=== PATIENT | female | born 1985 | race Caucasian/White ===

== ENCOUNTER 2021-02-27 09:14 | Emergency (ER) | payer OTHER, SELFPAY ==
[2021-02-27 09:20] VITALS: BP 110/63; PULSE 73; RESP 18; TEMP 37; O2SAT 96; BMI 20.7
--- NOTE | 2021-02-27 09:32 | ED.GENADULT ---
HPI - General Adult General Chief complaint: Abdominal Pain Stated complaint: groin pain/trouble urinating Time Seen by Provider: 02/27/21 09:27 Source: patient Mode of arrival: Ambulatory Limitations: no limitations History of Present Illness HPI narrative: Patient is a 35-year-old female here for evaluation of several weeks/months of groin discomfort and inability to urinate. She has been seen at least 2 times at an outside facility. She states she had an ultrasound over her abdomen and also with CT scan. She was told that everything was unremarkable. She states that she has also been ?ruled out for any infection ?during these visits. She does have a follow-up with Urology scheduled in approximately 1 week. She comes the emergency department today for lower abdominal discomfort. Problems with urinating. Incomplete voiding and pain. She has had her tubes tied. Related Data Previous Rx's Medication Instructions Recorded cephalexin 500 mg PO BID 7 Days #14 cap 02/27/21 Allergies Allergy/AdvReac Type Severity Reaction Status Date / Time No Known Drug Allergies Allergy Verified 02/27/21 09:34 Review of Systems Constitutional Constitutional: Denies fever(s) Cardiovascular Cardiovascular: Reports system reviewed and no additional complaints, except as documented Respiratory Respiratory: Reports system reviewed and no additional complaints, except as documented Gastrointestinal Gastrointestinal: Reports system reviewed and no additional complaints, except as documented and Denies change in bowel habits Genitourinary Genitourinary: Reports oliguria, Reports dysuria, Reports urinary hesitancy, Denies urinary incontinence and Reports urinary urgency Genitourinary: Reports dysuria, Denies urinary incontinence, Reports urinary hesitancy and Reports urinary urgency Musculoskeletal Musculoskeletal: Denies back pain Integumentary/Breasts Skin/Breast: Reports system reviewed and no additional complaints, except as documented Neurologic Neurologic: Reports system reviewed and no additional complaints, except as documented Hematologic/Lymphatic On Anticoagulants: No Allergic/Immunologic Allergic/Immunologic: Reports system reviewed and no additional complaints, except as documented Patient History Surgical History Tubal ligation status Social History lives independently: Yes Smoking Status: Never smoker Exam Initial Vital Signs Initial Vital Signs: Vital Signs Temperature 98.6 F 02/27/21 09:20 Pulse Rate 73 06/02/21 09:20 Respiratory Rate 18 02/27/21 09:20 Blood Pressure 110/63 02/27/21 09:20 Pulse Oximetry 96 02/27/21 09:20 Const General: cooperative and comfortable Limitations: mental status not altered HENMT Head: normal to inspection and normocephalic Resp Effort & Inspection: normal respiratory effort Cardio Rate: regular rate GI Palpation: soft and tender (Suprapubic) Skin Lesions: no lesions Rashes: no rashes Neuro General: patient alert and patient awake Cognition: normal cognition Speech: speech normal Extrem General: normal to inspection and capillary refill normal Psych Appearance: grossly normal and well kempt Course Orders Ordered: ED Orders 02/27/21 09:54 Urinalysis and Microscopic Stat Urine Culture Stat 02/27/21 10:31 US pelvic complete Stat Vital Signs Vital signs: Vital Signs - 8 hr 02/27/21 09:20 02/27/21 11:30 02/27/21 12:05 Temperature 98.6 F Pulse Rate 73 75 72 Respiratory Rate 18 18 16 Blood Pressure 110/63 110/74 113/57 L Pulse Oximetry 96 98 99 Medical Decision Making Medical Records Medical records reviewed: Yes I reviewed the patient's medical records. Lab Data Lab results reviewed: Yes I reviewed the patient's lab results. Labs: Lab Results 02/27/21 Range/Units 09:54 Urine Color Yellow Urine Appearance Clear Urine pH 6.5 (4.5-8.0) Ur Specific [place] 1.025 (1.000-1.035) Urine Protein Negative (Negative) Urine Glucose (UA) Trace H (Negative) g/dL Urine Ketones Negative (NEGATIVE) Urine Occult Blood Trace-intact (Negative) Urine Nitrate Positive H (Negative) Urine Bilirubin Negative (NEGATIVE) Urine Urobilinogen 0.2 (0.2) E.U./dL Ur Leukocyte Esterase Trace H (NEGATIVE) Urine RBC None seen (0-5/HPF) Urine WBC 5-10/hpf H (0-5/HPF) Ur Squamous Epith Cells 1-5 /hpf (0-5/HPF) Urine Bacteria Many (>30) H (None) Ur Culture Indicated? Specimen cultured Point of Care Testing Test Results Negative Urine Dip Bedside Urine Glucose Negative Bedside Urine Bilirubin - Negative Bedside Urine Ketone - Negative Urine Specific [place] 1.025 Bedside Urine Occult Blood +/- Bedside Urine pH 6 Bedside Urine Protein - Negative Bedside Urine Urobilinogen - Negative Bedside Urine Nitrite - Negative Bedside Urine Leukocytes +/- 15 Esterase Point of care testing: Point of Care Testing Test Results Negative Urine Dip Bedside Urine Glucose Negative Bedside Urine Bilirubin - Negative Bedside Urine Ketone - Negative Urine Specific [place] 1.025 Bedside Urine Occult Blood +/- Bedside Urine pH 6 Bedside Urine Protein - Negative Bedside Urine Urobilinogen - Negative Bedside Urine Nitrite - Negative Bedside Urine Leukocytes +/- 15 Esterase Imaging Data US - [employer]ODUCTION PROFESSIONAL: Radiologist's Impression: [address] [id number] ReportSigned Patient: Bere Shepherd LMR#: [id number]: [id number]:[id number]/Sex: 35 / FDate of Service: 02/27/21Loc: EDAccession Number: [id number] Procedure: US pelvic complete Ordering Provider: Garrett Houston D.O. PROCEDURE: US PELVIC COMPLETE INDICATIONS: BILATERAL PELVIC PAIN TECHNIQUE: Real-time scanning was performed of the pelvic organs, with image documentation. Additional endovaginal scanning was necessary due to incomplete visualization of the adnexal and endometrial structures by transabdominal scanning. COMPARISON: None. FINDINGS: Uterus: Uterus is normal in size at 6.8 x 5.4 x 6.6 cm. The endometrium measures 13 mm in combined thickness. Ovaries: Right ovary measures 4.3 x 1.5 x 2.9 cm. Left ovary measures 2.4 x 3.5 x 2.3 cm. There is a complex focus of echogenicity within the left ovary measuring 2.2 x 1.9 x 2.4 cm. Other: No pathologic free abdominal or pelvic fluid. IMPRESSION: Appearance of hemorrhagic cyst within the left ovary. Dictated by: Kelsie Araujo M.D. on 02/27/2021 at 11:43 Approved by: Kelsie Araujo M.D. on 02/27/2021 at 11:44 MDM Narrative Medical decision making narrative: Patient does have a benign exam. Ultrasound does show a left-sided ovarian cyst which I am not convinced as the cause of her pelvic discomfort. She does have a urinary tract infection today. Given her symptoms that she is having and the positive nitrate. I did discuss this with her. Was able to review the ER notes from the outside visit. At that point she did not have a urinary tract infection. Will send home on Keflex. She has an appointment with Urology already scheduled and I informed her that she needs to talk with her primary doctor about potentially getting in to see work checker as well. I feel we can hold on a CT scan. She had a CT at her prior ED visit was able to review those results and it was unremarkable. Patient was given return precautions. She expressed understanding and agreement. Discharge Plan Departure Patient Disposition: Home Clinical Impression: Pelvic pain, Ovarian cyst, Urinary tract infection Instructions: DI for Urinary Tract Infection (UTI) Activity Restrictions/Additional Instructions: Recommend that you start the antibiotics as directed. Continue to keep all of your medical appointments with the urologist. I would also recommend you talk with your primary doctor about a referral to see work checker. Return to the emergency department for any new or worsening symptoms Prescriptions: New cephalexin 500 mg capsule 500 mg PO BID 7 Days Qty: 14 RF: 0 Referrals: Rubin Levine MD [Primary Care Provider] -
[2021-02-27 09:56] LABS: RBC Urine None Seen (0-5/HPF)
[2021-02-27 09:57] LABS: Appearance Urine UA CLEAR; Bilirubin Urine UA NEGATIVE (NEGATIVE); Color Urine UA YELLOW; Glucose Urine UA TRACE g/dL (Negative); Ketones Urine UA NEGATIVE (NEGATIVE); Leukocyte Esterase Urine UA TRACE (NEGATIVE); Nitrite Urine UA POSITIVE (Negative); Occult Blood Urine UA TRACE-INTACT (Negative); Protein Urine UA NEGATIVE (Negative); Specific Gravity Urine UA 1.025 (1.000-1.035); Urobilinogen Urine UA 0.2 E.U./dL (0.2)
[2021-02-27 09:58] LABS: pH Urine UA 6.5 (4.5-8.0)
[2021-02-27 10:02] LABS: Bacteria Urine Many (>30); Culture Indicated Urine Specimen Cultured; Squamous Epithelial Cell Urine 1-5 /HPF (0-5/HPF); WBC Urine 5-10/HPF (0-5/HPF)
--- NOTE | 2021-02-27 10:31 | DI.US.S_ITS ---
PROCEDURE: US PELVIC COMPLETE INDICATIONS: BILATERAL PELVIC PAIN TECHNIQUE: Real-time scanning was performed of the pelvic organs, with image documentation. Additional endovaginal scanning was necessary due to incomplete visualization of the adnexal and endometrial structures by transabdominal scanning. COMPARISON: None. FINDINGS: Uterus: Uterus is normal in size at 6.8 x 5.4 x 6.6 cm. The endometrium measures 13 mm in combined thickness. Ovaries: Right ovary measures 4.3 x 1.5 x 2.9 cm. Left ovary measures 2.4 x 3.5 x 2.3 cm. There is a complex focus of echogenicity within the left ovary measuring 2.2 x 1.9 x 2.4 cm. Other: No pathologic free abdominal or pelvic fluid. IMPRESSION: Appearance of hemorrhagic cyst within the left ovary. Dictated by: Kelsie Araujo M.D. on 02/27/2021 at 11:43 Approved by: Kelsie Araujo M.D. on 02/27/2021 at 11:44
[2021-02-27 11:30] VITALS: BP 110/74; PULSE 75; RESP 18; O2SAT 98
[2021-02-27 12:05] VITALS: BP 113/57; PULSE 72; RESP 16; O2SAT 99
== END 2021-02-27 12:22 | disposition home or self-care (01) ==
PROVIDERS: Emergency Provider Emergency Medicine; PCP Family Medicine
DX: R30.0 Dysuria (principal); N83.202 Unspecified ovarian cyst, left side; R10.2 Pelvic and perineal pain; N39.0 Urinary tract infection, site not specified
CPT/HCPCS: 51798; 76830; 76856; 81001; 81003; 81025; 87077; 87086; 87186; 99283